=== PATIENT | female | born 1960 | race Caucasian/White ===

== ENCOUNTER 2017-12-12 19:28 | Emergency (ER) | payer OTHER ==
[~2017-12-12] VITALS: Ht 165.1 cm; Wt 71.7 kg
[~2017-12-12 19:28] MED LIST: BACTRIM DS TAB1 EACH PO; CYMBALTA30 MG; CYMBALTA30 MG PO; FLAGYL500 MG PO; HYDROCODONE-AP1 EAC6 PO; IMITREX; LEVAQUIN 500 M500 M2 PO; PREMPHASE 0.621 EAC1 PO; RIZATRIPTAN10 MG PO; ROCEPHIN 11 GM/100 M IV; SENEXON-S TABL1 EACH PO; TOPAMAX50 MG; WELLBUTRIN 75 M75 M1 PO; WELLBUTRIN SR150 MG; ZOCOR 20 MG TAB20 M1; ZOCOR20 MG PO; ZOFRAN4 MG PO; ZOLOFT100 MG PO
[2017-12-12] MEDS ORDERED: SYNTHROID75 MCG PO (19:40)
[2017-12-12] MEDS ORDERED: ZOLMITRIPTAN ODT5 MG PO (19:41)
[2017-12-12] MEDS ORDERED: PHENERGAN 25 MG25 M1 PO (19:42)
[2017-12-12 20:18] LABS: ABSOLUTE BASOPHILS 0.1 thou/uL (0.0-0.2); ABSOLUTE EOSINOPHILS 0.1 thou/uL (0.0-0.7); ABSOLUTE LYMPHOCYTES 2.2 thou/uL (0.8-5.3); ABSOLUTE MONOCYTES 0.6 thou/uL (0.0-1.2); ABSOLUTE NEUTROPHILS 2.6 thou/uL (1.6-8.1); BASOPHILS 1.1 %; EOSINOPHILS 2.6 %; HEMATOCRIT 33.9 % (37.0-47.0); HEMOGLOBIN 11.7 gm/dL (12.0-15.0); LYMPHOCYTES 38.7 %; MCH 34.1 pg (26.0-34.0); MCHC 34.4 g/dL (28.0-37.0); MCV 99.2 fL (80.0-100.0); MONOCYTES 11.6 %; MPV 8.9 fl. (7.2-11.1); NUCLEATED RBCS 0 /100WBC; PLATELET COUNT* 212 thou/uL (150-400); RBC 3.42 mil/uL (4.20-5.00); RDW-CV 13.2 % (10.5-14.5); WBC 5.6 thou/uL (4.0-11.0)
[2017-12-12 20:34] LABS: ANION GAP 9 mmol/L (7-16); BUN 12 mg/dL (7-18); CALCIUM 8.4 mg/dL (8.5-10.1); CHLORIDE 107 mmol/L (98-107); CO2 28 mmol/L (21-32); CREATININE 1.1 mg/dL (0.6-1.3); GLUCOSE 111 mg/dL (70-99); POTASSIUM 3.6 mmol/L (3.5-5.1); SODIUM 144 mmol/L (136-145)
[2017-12-12 20:38] LABS: ALBUMIN 3.5 g/dL (3.4-5.0); ALKALINE PHOSPHATASE 79 U/L (46-116); NT-PRO BRAIN NAT PEPTIDE 44 pg/mL (<300); SGOT 22 U/L (15-37); SGPT 34 U/L (30-65); TOTAL BILIRUBIN 0.2 mg/dL (<0.1-1.0); TOTAL PROTEIN 6.5 g/dL (6.4-8.2); TROPONIN-I LEVEL <0.06 ng/mL (<0.06)
[2017-12-12 21:01] VITALS: BP 99/71
--- NOTE | 2017-12-13 18:08 | EKG ---
[place] [address] ELECTROCARDIOGRAM REPORT Name: KENDRA AGUILAR Jason Room: [facility]#: [id number] Admission: 12/12/17 Attend Phys: Discharge: 12/12/17 Date of : 64 Report #: [id number] THIS REPORT FOR: //name// [facility] ED Test Date: 2017-12-12 Test Time: 20:04:48 Pat Name: KENDRA AGUILAR Department: Room: Gender: F Community Education Specialist: AUBREY : 1960 Requested By: Bigg Riggins Order Number: [id number] MD: Kd Mckeon Measurements Intervals [place] Rate: 88 P: 54 FL: 151 QRS: 72 QRSD: 95 T: 40 QT: 355 QTc: 430 Interpretive Statements Sinus rhythm Compared to ECG 03/22/2015 12:36:43 No significant changes Electronically Signed On 12-13-2017 18:08:07 CDT by Kd Mckeon [email or web address] <ELECTRONICALLY SIGNED> By: Kd Mckeon MD, [facility] 12/13/17 1808 03 03 Kd Mckeon MD, FACC /EPI
== END 2017-12-12 21:02 | disposition home or self-care (01) ==
LOC: M.ERS 19:28
PROVIDERS: Emergency Medicine
DX: R60.0 Localized edema (principal); E78.00 Pure hypercholesterolemia, unspecified; G43.909 Migraine, unspecified, not intractable, without status migrainosus; F17.210 Nicotine dependence, cigarettes, uncomplicated

== ENCOUNTER 2018-04-08 12:13 | Emergency (ER) | payer OTHER ==
[~2018-04-08] VITALS: Ht 165.1 cm; Wt 71.7 kg
[~2018-04-08 12:13] MED LIST changes: +PHENERGAN 25 MG25 M1 PO; +SYNTHROID75 MCG PO; +ZOLMITRIPTAN ODT5 MG PO
[2018-04-08] MEDS ORDERED: ACID REFLUX MED (12:34)
[2018-04-08] MEDS ORDERED: LIPITOR10 MG PO (12:34)
[2018-04-08] MEDS ORDERED: AZITHROMYCIN 2250 MG PO (13:57)
[2018-04-08] MEDS ORDERED: PREDNISONE 20 M20 MG PO (13:57)
[2018-04-08 14:20] VITALS: BP 111/70
== END 2018-04-08 14:21 | disposition home or self-care (01) ==
LOC: M.ERS 12:13
DX: G43.909 Migraine, unspecified, not intractable, without status migrainosus (principal); F32.9 Major depressive disorder, single episode, unspecified; F41.9 Anxiety disorder, unspecified; E78.00 Pure hypercholesterolemia, unspecified; F17.210 Nicotine dependence, cigarettes, uncomplicated

== ENCOUNTER 2018-06-16 15:56 | Emergency (ER) | payer OTHER ==
[~2018-06-16] VITALS: Ht 165.1 cm; Wt 74.9 kg
[~2018-06-16 15:56] MED LIST changes: +ACID REFLUX MED; +AZITHROMYCIN 2250 MG PO; +LIPITOR10 MG PO; +PREDNISONE 20 M20 MG PO
[2018-06-16] MEDS ORDERED: LEVAQUIN 750 M750 MG PO (16:19)
[2018-06-16 16:59] LABS: ABSOLUTE EOSINOPHILS 0.1 thou/uL (0.0-0.7); ABSOLUTE LYMPHOCYTES 1.1 thou/uL (0.8-5.3); ABSOLUTE MONOCYTES 0.5 thou/uL (0.0-1.2); ABSOLUTE NEUTROPHILS 6.4 thou/uL (1.6-8.1); BASOPHILS 0.2 %; EOSINOPHILS 1.7 %; HEMATOCRIT 41.5 % (37.0-47.0); HEMOGLOBIN 14.2 gm/dL (12.0-15.0); LYMPHOCYTES 13.9 %; MCH 34.1 pg (26.0-34.0); MCHC 34.3 g/dL (28.0-37.0); MCV 99.4 fL (80.0-100.0); MONOCYTES 5.7 %; NUCLEATED RBCS 0 /100WBC; PLATELET COUNT* 228 thou/uL (150-400); POLYS 78.5 %; RBC 4.18 mil/uL (4.20-5.00); RDW-CV 13.6 % (10.5-14.5); WBC 8.2 thou/uL (4.0-11.0)
[2018-06-16 17:04] LABS: CALCIUM 8.9 mg/dL (8.5-10.1); CREATININE 0.8 mg/dL (0.6-1.3); POTASSIUM 3.6 mmol/L (3.5-5.1)
[2018-06-16 17:08] LABS: TOTAL BILIRUBIN 0.2 mg/dL (<0.1-1.0); TOTAL PROTEIN 8.1 g/dL (6.4-8.2)
[2018-06-16 19:39] LABS: INFLUENZA A ANTIGEN None Detected (None Detect); INFLUENZA B ANTIGEN None Detected (None Detect)
[2018-06-16] MEDS ORDERED: PHENERGAN 25 MG25 M1 PO (19:49)
[2018-06-16] MEDS ORDERED: PREDNISONE 20 M20 M1 PO (19:49)
[2018-06-16] MEDS ORDERED: PERCOCET 5-3251 EACH PO (19:52)
[2018-06-16 20:18] VITALS: BP 103/69
== END 2018-06-16 20:19 | disposition home or self-care (01) ==
LOC: M.ERS 15:56
PROVIDERS: Nurse Practitioner Family
DX: R51 Headache (principal); R11.2 Nausea with vomiting, unspecified; F41.9 Anxiety disorder, unspecified; F32.9 Major depressive disorder, single episode, unspecified; E78.00 Pure hypercholesterolemia, unspecified; F17.210 Nicotine dependence, cigarettes, uncomplicated; Z88.1 Allergy status to other antibiotic agents; Z88.8 Allergy status to other drugs, medicaments and biological substances

== ENCOUNTER 2019-12-11 20:56 | Emergency (ER) | payer OTHER ==
[~2019-12-11] VITALS: Ht 165.1 cm; Wt 70.8 kg
[~2019-12-11 20:56] MED LIST changes: +LEVAQUIN 750 M750 MG PO; +PERCOCET 5-3251 EACH PO; +PREDNISONE 20 M20 M1 PO
[2019-12-11] MEDS ORDERED: VYVANSE70 MG PO (21:05)
[2019-12-11] MEDS ORDERED: NEURONTIN 300M300 M2 PO (21:06)
[2019-12-11 22:35] LABS: INFLUENZA A ANTIGEN Negative (Negative); INFLUENZA B ANTIGEN Negative (Negative)
[2019-12-11 22:58] VITALS: BP 120/85
== END 2019-12-11 22:58 | disposition home or self-care (01) ==
LOC: M.ERS 20:56
PROVIDERS: Personal Emergency Response Attendant
DX: J06.9 Acute upper respiratory infection, unspecified (principal); G43.909 Migraine, unspecified, not intractable, without status migrainosus; E78.00 Pure hypercholesterolemia, unspecified; F32.9 Major depressive disorder, single episode, unspecified; F41.9 Anxiety disorder, unspecified; F17.210 Nicotine dependence, cigarettes, uncomplicated; Z88.1 Allergy status to other antibiotic agents; Z88.8 Allergy status to other drugs, medicaments and biological substances

== ENCOUNTER 2020-03-31 13:39 | Emergency (ER) | payer BC ==
[~2020-03-31] VITALS: Ht 165.1 cm; Wt 67.6 kg
[~2020-03-31 13:39] MED LIST changes: +NEURONTIN 300M300 M2 PO; +VYVANSE70 MG PO
[2020-03-31] MEDS ORDERED: VENLAFAXINE HCL25 MG PO (13:51)
[2020-03-31] MEDS ORDERED: XANAX1 MG PO (13:51)
[2020-03-31 14:06] LABS: URINE BILIRUBIN NEGATIVE (Negative); URINE BLOOD NEGATIVE (Negative); URINE CLARITY CLEAR; URINE COLOR YELLOW; URINE GLUCOSE-RANDOM NEGATIVE (Negative); URINE KETONES NEGATIVE (Negative); URINE LEUKOCYTES-REFLEX 1+ (Negative); URINE NITRITE-REFLEX NEGATIVE (Negative); URINE PROTEIN NEGATIVE (Negative); URINE SPECIFIC GRAVITY >= 1.030 (1.005-1.030); URINE UROBILINOGEN 0.2 E.U./dl (0.2-1.0)
[2020-03-31 14:11] LABS: SQUAMOUS 4-10 Moderate /LPF (0-3); URINE WBC-REFLEX 6-15 Few /HPF (0-5)
[2020-03-31 14:12] LABS: BACTERIA-REFLEX >30 Many /HPF (None Seen); CASTS None Seen /LPF (None Seen); CRYSTALS None Seen /LPF (None Seen); MUCUS >6 Heavy strn/LPF (None Seen); URINE RBC 0-2 Rare /HPF (0-2)
[2020-03-31 14:37] LABS: ABSOLUTE EOSINOPHILS 0.1 thou/uL (0.0-0.7); ABSOLUTE MONOCYTES 0.5 thou/uL (0.0-1.2); ABSOLUTE NEUTROPHILS 3.1 thou/uL (1.6-8.1); BASOPHILS 0.8 %; EOSINOPHILS 1.5 %; HEMATOCRIT 37.7 % (37.0-47.0); HEMOGLOBIN 13.2 gm/dL (12.0-15.0); LYMPHOCYTES 34.7 %; MCH 35.1 pg (26.0-34.0); MCHC 35.1 g/dL (28.0-37.0); MONOCYTES 9.2 %; NUCLEATED RBCS 0 /100WBC; PLATELET COUNT* 190 thou/uL (150-400); POLYS 53.8 %; RBC 3.77 mil/uL (4.20-5.00); RDW-CV 13.3 % (10.5-14.5); WBC 5.7 thou/uL (4.0-11.0)
[2020-03-31 14:46] LABS: CALCIUM 9.3 mg/dL (8.5-10.1); CREATININE 0.7 mg/dL (0.6-1.3); POTASSIUM 4.3 mmol/L (3.5-5.1)
[2020-03-31 14:50] LABS: ALBUMIN 3.9 g/dL (3.4-5.0); TOTAL BILIRUBIN 0.5 mg/dL (<0.1-1.0); TOTAL PROTEIN 7.2 g/dL (6.4-8.2)
[2020-03-31] MEDS ORDERED: FLAGYL500 M1 PO (17:03)
[2020-03-31] MEDS ORDERED: CIPRO500 MG PO (17:03)
[2020-03-31] MEDS ORDERED: PHENERGAN 25 MG25 M1 PO (17:03)
[2020-03-31] MEDS ORDERED: NORCO 5-325 TA1 EAC2 PO (17:03)
[2020-03-31 17:15] VITALS: BP 114/82
== END 2020-03-31 17:16 | disposition home or self-care (01) ==
LOC: M.ERS 13:39
PROVIDERS: Nurse Practitioner Family
DX: K57.90 Diverticulosis of intestine, part unspecified, without perforation or abscess without bleeding (principal); R19.7 Diarrhea, unspecified; F17.210 Nicotine dependence, cigarettes, uncomplicated; E78.00 Pure hypercholesterolemia, unspecified; G43.909 Migraine, unspecified, not intractable, without status migrainosus; F32.9 Major depressive disorder, single episode, unspecified; Z88.1 Allergy status to other antibiotic agents; Z79.899 Other long term (current) drug therapy

== ENCOUNTER 2020-04-21 15:46 | Emergency (ER) | payer BC ==
[~2020-04-21] VITALS: Ht 165.1 cm; Wt 67.6 kg
[~2020-04-21 15:46] MED LIST changes: +CIPRO500 MG PO; +FLAGYL500 M1 PO; +NORCO 5-325 TA1 EAC2 PO; +VENLAFAXINE HCL25 MG PO; +XANAX1 MG PO
[2020-04-21] MEDS ORDERED: CIPROFLOXIN HC2.5 M1 OPHTHALMIC (17:17)
[2020-04-21 17:41] VITALS: BP 137/91
== END 2020-04-21 17:43 | disposition home or self-care (01) ==
LOC: M.ERS 15:46
DX: J98.9 Respiratory disorder, unspecified (principal); H57.89 Other specified disorders of eye and adnexa; E78.00 Pure hypercholesterolemia, unspecified; G43.909 Migraine, unspecified, not intractable, without status migrainosus; F32.9 Major depressive disorder, single episode, unspecified; F41.9 Anxiety disorder, unspecified; F17.210 Nicotine dependence, cigarettes, uncomplicated; Z20.828 Contact with and (suspected) exposure to other viral communicable diseases; Z88.1 Allergy status to other antibiotic agents; Z88.8 Allergy status to other drugs, medicaments and biological substances

== ENCOUNTER 2020-08-08 13:28 | Emergency (ER) | payer BC ==
[~2020-08-08] VITALS: Ht 165.1 cm; Wt 70.8 kg
[~2020-08-08 13:28] MED LIST changes: +CIPROFLOXIN HC2.5 M1 OPHTHALMIC
[2020-08-08] MEDS ORDERED: TRAMADOL 50 MG50 MG PO (13:37)
[2020-08-08] MEDS ORDERED: UBRELVY50 MG PO (13:43)
--- NOTE | 2020-08-08 16:48 | EKG ---
[place] [address] ELECTROCARDIOGRAM REPORT Name: LUARENKENDRA LUCY Room: [facility]#: [id number] Admission: 08/08/20 Attend Phys: Discharge: Date of : 64 Date of Service: 08/08/20 1341 Report #: [id number] THIS REPORT FOR: //name// [facility] ED Test Date: 2020-08-08 Test Time: 13:41:28 Pat Name: KENDRA AGUILAR Department: Room: Gender: F Geriatrician: S : 1960 Requested By: Lang Meza Order Number: [id number] Gaurav MD: Marco Alvarado Measurements Intervals [place] Rate: 91 P: 44 [place]: 153 QRS: 60 QRSD: 85 T: 40 QT: 352 QTc: 434 Interpretive Statements Sinus rhythm Baseline wander in lead(s) II,III,aVL,aVF,V2 Compared to ECG 12/12/2017 20:04:48 No significant changes Electronically Signed On 08-08-2020 16:48:31 WHALE FISHERMAN by Marco Alvarado [email or web address] <ELECTRONICALLY SIGNED> By: Marco Alvarado MD, [facility] 08/08/20 1648 1341 1341 Marco Alvarado MD, [facility] /EPI
[2020-08-08 16:52] LABS: ABSOLUTE EOSINOPHILS 0.1 thou/uL (0.0-0.7); ABSOLUTE LYMPHOCYTES 2.4 thou/uL (0.8-5.3); ABSOLUTE MONOCYTES 0.4 thou/uL (0.0-1.2); ABSOLUTE NEUTROPHILS 2.8 thou/uL (1.6-8.1); BASOPHILS 0.7 %; EOSINOPHILS 1.7 %; HEMATOCRIT 39.4 % (37.0-47.0); HEMOGLOBIN 13.5 gm/dL (12.0-15.0); LYMPHOCYTES 41.7 %; MCH 34.2 pg (26.0-34.0); MCHC 34.3 g/dL (28.0-37.0); MCV 99.7 fL (80.0-100.0); MONOCYTES 7.6 %; MPV 8.2 fl. (7.2-11.1); NUCLEATED RBCS 0 /100WBC; PLATELET COUNT* 230 thou/uL (150-400); POLYS 48.3 %; RBC 3.95 mil/uL (4.20-5.00); RDW-CV 13.2 % (10.5-14.5); WBC 5.8 thou/uL (4.0-11.0)
[2020-08-08 16:58] LABS: CALCIUM 9.5 mg/dL (8.5-10.1); CREATININE 0.9 mg/dL (0.6-1.3); POTASSIUM 3.9 mmol/L (3.5-5.1)
[2020-08-08 17:03] LABS: ALBUMIN 4.1 g/dL (3.4-5.0); TOTAL BILIRUBIN 0.4 mg/dL (<0.1-1.0)
[2020-08-08] MEDS ORDERED: PROPRANOLOL 1010 MG PO (17:40)
[2020-08-08 18:09] VITALS: BP 140/76
== END 2020-08-08 18:10 | disposition home or self-care (01) ==
LOC: M.ERS 13:28
PROVIDERS: Nurse Practitioner Family
DX: R00.2 Palpitations (principal); R53.1 Weakness; Z20.828 Contact with and (suspected) exposure to other viral communicable diseases; F32.9 Major depressive disorder, single episode, unspecified; F41.9 Anxiety disorder, unspecified; E78.00 Pure hypercholesterolemia, unspecified; G43.909 Migraine, unspecified, not intractable, without status migrainosus; E03.9 Hypothyroidism, unspecified; Z79.899 Other long term (current) drug therapy; Z88.1 Allergy status to other antibiotic agents; Z88.8 Allergy status to other drugs, medicaments and biological substances; F17.210 Nicotine dependence, cigarettes, uncomplicated

== ENCOUNTER 2021-04-29 21:15 | Emergency (ER) | payer BC ==
[~2021-04-29] VITALS: Ht 165.1 cm; Wt 70.3 kg
[~2021-04-29 21:15] MED LIST changes: +PROPRANOLOL 1010 MG PO; +TRAMADOL 50 MG50 MG PO; +UBRELVY50 MG PO
[2021-04-29] MEDS ORDERED: PROTONIX40 M2 PO (21:47)
[2021-04-29] MEDS ORDERED: ABILIFY 5 MG TAB5 MG PO (21:47)
[2021-04-29] MEDS ORDERED: LUNESTA3 MG PO (21:48)
[2021-04-30] MEDS ORDERED: BACLOFEN5 MG PO (01:41)
[2021-04-30] MEDS ORDERED: HYDROCODON-ACE1 EAC7 PO (01:41)
[2021-04-30] MEDS ORDERED: MELOXICAM15 MG PO (01:43)
[2021-04-30 01:53] VITALS: BP 142/101
== END 2021-04-30 01:53 | disposition home or self-care (01) ==
LOC: M.ERS 21:15
DX: S20.212A Contusion of left front wall of thorax, initial encounter (principal); G43.909 Migraine, unspecified, not intractable, without status migrainosus; I10 Essential (primary) hypertension; F17.210 Nicotine dependence, cigarettes, uncomplicated; Z88.1 Allergy status to other antibiotic agents; Z98.890 Other specified postprocedural states; V28.0XXA Motorcycle driver injured in noncollision transport accident in nontraffic accident, initial encounter; Y93.I9 Activity, other involving external motion; Y92.481 Parking lot as the place of occurrence of the external cause; Y99.8 Other external cause status